=== PATIENT | male | born 1945 | race Caucasian/White ===

== ENCOUNTER 2025-02-22 16:15 | Emergency (ER) | payer MEDICARE ==
[~2025-02-22] VITALS: Ht 165.1 cm; Wt 62.6 kg
[2025-02-22 16:22] VITALS: TEMP 98.1
[2025-02-22] MEDS ORDERED: MORPHINE SULFATE INJ 4 MG/ML DISP.SYRIN ONE (16:30)
[2025-02-22] MEDS ORDERED: PROPOFOL 20 ML IV ONE (16:30)
[2025-02-22] MEDS: MORPHINE SULFATE INJ 2 MG/ML DISP.SYRIN IV ONE (16:45)
[2025-02-22] MEDS: PROPOFOL 200 MG/20 ML VIAL IV ONE (16:59)
[2025-02-22 18:32] VITALS: BP 136/67; O2SAT 99
== END 2025-02-22 18:32 | disposition home or self-care (01) ==
LOC: ER 16:20
DX: S43.084A Other dislocation of right shoulder joint, initial encounter (principal); I10 Essential (primary) hypertension; Z86.79 Personal history of other diseases of the circulatory system; W18.39XA Other fall on same level, initial encounter; Y93.89 Activity, other specified; Y92.89 Other specified places as the place of occurrence of the external cause; Y99.8 Other external cause status
CPT/HCPCS: 99285; 23650; 96374; 99152; 73030; 73020; J2704; J2270; J7030; G0500